=== PATIENT | female | born 1970 | race Caucasian/White ===

== ENCOUNTER 2018-02-18 15:03 | Emergency (ER) | payer OTHER ==
[~2018-02-18] VITALS: Ht 165.1 cm; Wt 71.0 kg
[~2018-02-18 15:03] MED LIST: LEVO50TA PO
[2018-02-18 15:39] LABS: HEMATOCRIT 39.8 % (36.0-48.0); HEMOGLOBIN 13.5 g/dL (12.0-16.0); MEAN CORPUSCULAR HEMOGLOBIN 32.3 pg (28.0-32.0); PLATELET 195 x1000/uL (130-400); RED BLOOD CELL COUNT 4.19 mill/uL (4.2-5.4); RED CELL DISTRIBUTION WIDTH 12.7 % (11.6-14.6)
[2018-02-18 15:42] LABS: CHLORIDE 110 mEq/L (98-107)
[2018-02-18 18:10] LABS: HCG SCREEN NEGATIVE
[2018-02-18 21:32] VITALS: BP 115/60
== END 2018-02-18 21:33 | disposition home or self-care (01) ==
LOC: ER 15:39
DX: R53.1 Weakness (principal); R42 Dizziness and giddiness; E03.9 Hypothyroidism, unspecified
CPT/HCPCS: 36415; 80048; 84703; 85027; 93005; 99285; Z7610